=== PATIENT | female | born 1950 ===

== ENCOUNTER → 2024-09-30 | Outpatient (CLI) | payer MEDICARE ==
[~2024-09-30] VITALS: Ht 152.4 cm; Wt 56.7 kg
[2024-09-30] MEDS: REGADENOSON 0.4 MG/5 ML SYRG IV ONE ×2 (09:55→09:57)
--- NOTE | 2024-09-30 15:22 | DVHSR ---
APPROVED REPORT Exam: Nuclear Stress Test Indication: Chest pain Stress Tech: Neha Winston Ht: 5 ft 0 in Wt: 125 lbs BSA: 1.53 m2 HR: 52 bpm BMI: 24.40 Rhythm: NSR Medical History Medical History: HTN, HLD, Hypothyroidism, DM Allergies: No known drug allergies Stress Test Details Stress Test: Pharmacologic stress testing performed using 0.4 mg of regadenoson per 5 mL given IV ov er 10 seconds. Reason for pharmacologic stress test: Chest Pain. HR Resting HR: 52 bpmMax Heart Rate (APMHR): 145.960772 bpm Max HR Achieved: 85 bpmTarget HR (85% APMHR): 123.436838 bpm % of APMHR: 58.62 Recovery HR: 73 bpm BP Resting BP: 156/75 mmHg Recovery BP: 146/62 mmHg ECG Resting ECG: NSR Clinical Reason for Termination: Completed protocol Stress ECG Conclusion Resting ECG shows normal sinus rhythm. At peak stress level there was no EKG changes to suggest isch emia. Resting images shows near homogeneous uptake of radioactive tracer throughout the myocardium without evidence of myocardial infarction. Stress images shows near homogeneous uptake of radioactive tracer throughout the myocardium without e vidence of myocardial ischemia. Well-preserved left ventricular systolic function at 81%. Impression: Negative stress test for ischemia, low risk study. NM EXAM: Myocardial Perfusion REST/STRESS Imaging Protocol: Rest Tc-99m/Stress Tc-99m 1 day Resting Data Rest SPECT myocardial perfusion imaging was performed in supine position 60 minutes following the int ravenous injection of 8.01 mCi of Tc-99m Sestamibi. Time of rest injection: 0910 Time of rest imagin Administration Route: IV Administration Site: Left AC Pharmacologic Stress Pharmacologic stress test was performed by injecting Regadenoson 0.4 mg IV push followed by the intra venous injection of 22.7 mCi of Tc-99m Sestamibi. Time of stress injection: 1020 Time of stress imagin Administration Route: IV Administration Site: Left Arm Gated Stress SPECT was performed 60 minutes after stress injection. The images were gated to evaluate regional wall motion and calculate left ventricular ejection fracti on. Stress only was performed in the Supine position. Nuclear Conclusion ECG Findings: negative for ischemia Clinical Findings: negative for ischemia Nuclear Findings: negative for ischemia Exercise Capacity: not assessed Left Ventricular Function: normal Risk Study: low Resting ECG shows normal sinus rhythm. At peak stress level there was no EKG changes to suggest isch emia. Resting images shows near homogeneous uptake of radioactive tracer throughout the myocardium without evidence of myocardial infarction. Stress images shows near homogeneous uptake of radioactive tracer throughout the myocardium without e vidence of myocardial ischemia. Well-preserved left ventricular systolic function at 81%. Impression: Negative stress test for ischemia, low risk study.
== END | disposition home or self-care (01) ==
LOC: XYW 08:00
PROVIDERS: ATTEND Specialist
DX: R07.9 Chest pain, unspecified (principal); I10 Essential (primary) hypertension; R00.2 Palpitations; E03.9 Hypothyroidism, unspecified; G80.9 Cerebral palsy, unspecified; E11.9 Type 2 diabetes mellitus without complications; E78.5 Hyperlipidemia, unspecified
CPT/HCPCS: 78452; 93017; A9500; J2785